=== PATIENT | female | born 1960 | race African-American/Black ===

== ENCOUNTER 2018-07-07 08:10 | Emergency (ER) | payer BC, OTHER ==
--- NOTE | 2018-07-07 08:36 | EKG ---
Test Date: 2018-07-07 Test Time: 08:21:42 [employer] Sales Executive: RICHAR MEASUREMENT RESULTS: Intervals: Rate: 64 CO: 148 QRSD: 90 QT: 386 QTc: 398 [place]: P: 2 CO: 148 QRS: -11 T: -29 INTERPRETIVE STATEMENTS: Normal sinus rhythm Nonspecific T wave abnormality Abnormal ECG Compared to ECG 07/19/1991 00:02:00 No significant changes Electronically Signed On 07-07-18 08:36:18 CDT by Zac Ackerman
[2018-07-07 08:58] LABS: Protime INR 0.96
[2018-07-07 09:01] LABS: Absolute Monocytes 0.2 K/uL (0.1-1.3); Absolute Neutrophil 1.7 K/uL (1.8-8.0); Basophils % 0.4 % (0-1.3); Eosinophils % 3.2 % (0-4.4); Lymphocytes % 48.6 % (15.3-44.8); Monocytes % 6.1 % (3.3-12.3); RBC Red Blood Cell Count 4.19 M/uL (3.86-4.86)
[2018-07-07 09:15] LABS: ALT/SGPT 28 U/L (12-78); AST/SGOT 25 U/L (15-37); Albumin 4.2 g/dL (3.4-5.0); Alkaline Phosphatase 82 U/L (45-117); BUN Blood Urea Nitrogen 14 mg/dL (7-18); Bicarbonate 30 mmol/L (21-32); Bilirubin Direct 0.2 mg/dL (0-0.2); Bilirubin Total 0.6 mg/dL (0.2-1.0); Glucose Level 104 mg/dL (74-106); Magnesium 2.4 mg/dL (1.8-2.4); NT PRO-BNP 33 pg/mL (<125); Potassium 4.3 mmol/L (3.5-5.1); Protein, Total 7.9 g/dL (6.4-8.2); Sodium Level 143 mmol/L (136-145); Troponin (Emerg Dept Use Only) < 0.02 ng/mL (0.0-0.045)
[2018-07-07 09:30] LABS: Blood Morphology Comment NOT SEEN (NOT SEEN); Platelet Estimate ADEQ
--- NOTE | 2018-07-07 09:44 | RAD REPORT ---
EXAM DESCRIPTION: [place] Single View07/07/2018 8:57 am CLINICAL HISTORY: Chest pain COMPARISON: none FINDINGS: The lungs appear clear of acute infiltrate. The heart is normal size IMPRESSION: No acute abnormalities displayed
--- NOTE | 2018-07-07 10:24 | RAD REPORT ---
EXAM DESCRIPTION: CT - Chest Angio - 07/07/2018 9:52 am CLINICAL HISTORY: . Chest pain COMPARISON: none TECHNIQUE: Computed tomography angiography of the chest obtained. 100 cc Isovue 370 was administered intravenously. 3D MIPS reconstruction performed All CT scans are performed using dose optimization technique as appropriate and may include automated exposure control or mA/KV adjustment according to patient size. FINDINGS: A thoracic aortic dissection is not seen. An aortic aneurysm is not displayed. The celiac, and SMA are patent A central pulmonary embolus is not seen A lung consolidation is not present. A pericardial effusion is not seen. A pleural effusion is not n oted. Fatty liver 5.1 centimeter fatty mass lies within the posterior musculature of the scapula. IMPRESSION: Negative for an aortic dissection. 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 It does contain a few septations along the superior aspect. A well differentiated liposar coma is considerably less likely. It is recommended that the patient have a followup ultrasound in 6 months to assess stability
--- NOTE | 2018-07-07 11:31 | ER ---
Nurse's Notes [facility] Name: Macy Brown Age: 57 yrs Sex: Female : 1960 Arrival Date: 07/07/2018 Time: 08:12 Bed 2 Private MD: Danica Fernandez Diagnosis: Chest pain, unspecified Presentation: 07/07 08:29 Presenting complaint: Patient states: Sudden onset of R sided CP that radiated towards ss upper back 6 days ago that lasted momentarily, but patient states that since then she has had a dull "nagging" pain to same area. Denies SOB, cough and/or fever. Transition of care: patient was not received from another setting of care. Onset of symptoms was June 30, 2018. Risk Assessment: Do you want to hurt yourself or someone else? Patient reports no desire to harm self or others. Initial Sepsis Screen: Does the patient meet any 2 criteria? No. Patient's initial sepsis screen is negative. Does the patient have a suspected source of infection? No. Patient's initial sepsis screen is negative. Care prior to arrival: None. 08:29 Method Of Arrival: Ambulatory ss 08:29 Acuity: PATRICIA 3 ss Historical: - Allergies: 08:31 No Known Allergies; ss - Home Meds: 08:31 blood presure medication [Active]; aspirin 81 mg Oral TbEC 1 tab once daily [Active]; ss - PMHx: 08:31 Hypertension; ss - PSHx: 08:31 ; ss - Immunization history:: Adult Immunizations. - Social history:: Smoking status: Patient/guardian denies using tobacco. - Ebola Screening: : Patient denies exposure to infectious person Patient denies travel to an Ebola-affected area in the 21 days before illness onset. Screenin:44 Abuse screen: Denies threats or abuse. Denies injuries from another. Nutritional ss screening: No deficits noted. Tuberculosis screening: No symptoms or risk factors identified. Never had TB. Fall Risk None identified. Assessment: 08:25 General: Appears in no apparent distress. comfortable, Behavior is calm, cooperative, ss Denies fever, feeling ill, fatigue, chills. Pain: Complains of pain in anterior aspect of right upper chest Pain radiates to right scapular area Pain currently is 5 out of 10 on a pain scale. at worst was 9 out of 10 on a pain scale. Quality of pain is described as dull "nagging" Pain began 6 days ago. Neuro: Level of Consciousness is awake, alert, obeys commands, Oriented to person, place, time, situation. Cardiovascular: Capillary refill < 3 seconds is brisk in bilateral fingers Rhythm is regular. Cardiovascular: Reports chest pain, Denies lightheadedness, palpitations, shortness of breath, Heart tones S1 S2 present Pulses are palpable in right radial artery and left radial artery. Respiratory: Airway is patent Respiratory effort is even, unlabored, Respiratory pattern is regular, symmetrical. Respiratory: Breath sounds are clear bilaterally. Denies cough, shortness of breath pain with respiration, pain with cough, pain with movement. GI: Patient currently denies abdominal pain, diarrhea, nausea, vomiting. : No signs and/or symptoms were reported regarding the genitourinary system. EENT: Nares are clear Oral mucosa is moist. Throat is clear. Derm: Skin is intact, is healthy with good turgor, Skin is pink, warm \\T\\ dry. normal. Musculoskeletal: Circulation, motion, and sensation intact. Capillary refill < 3 seconds, is brisk, Range of motion: intact in all extremities, Swelling absent. 08:50 General: Appears in no apparent distress. comfortable, Behavior is calm, cooperative, sv appropriate for age. Pain: Complains of pain in anterior aspect of left upper chest and left breast Pain currently is 6 out of 10 on a pain scale. Neuro: Level of Consciousness is awake, alert, obeys commands, Oriented to person, place, time, situation, Moves all extremities. Full function Gait is steady. Respiratory: Airway is patent Respiratory effort is even, unlabored, Respiratory pattern is regular, symmetrical. Derm: Skin is intact, Skin is pink, warm \\T\\ dry. 12:12 Reassessment: Patient appears in no apparent distress at this time. No changes from sv previously documented assessment. Patient and/or family updated on plan of care and expected duration. Pain level reassessed. Patient is alert, oriented x 3, equal unlabored respirations, skin warm/dry/pink. Vital Signs: 08:31 BP 141 / 97; Pulse 75; Resp 15; Temp 97.6(O); Pulse Ox 99% on R/A; Weight 83.91 kg; ss Height 5 ft. 6 in. (167.64 cm); 09:38 BP 129 / 80; Pulse 60; Resp 19; Pulse Ox 99% ; sv 08:31 Body Mass Index 29.86 (83.91 kg, 167.64 cm) ED Course: 08:12 Patient arrived in ED. as 08:12 Danica Fernandez MD is Private Physician. as 08:24 Nguyễn Nielson MD is Attending Physician. kdr 08:25 Patient maintains SpO2 saturation greater than 95% on room air. ss 08:25 Patient has correct armband on for positive identification. child monitor on. Pulse ss ox on. NIBP on. Warm blanket given. 08:26 EKG done, by splicing technician. reviewed by Nguyễn Nielson MD. at1 08:30 Triage completed. ss 08:31 Arm band placed on right wrist. ss 08:41 Initial lab(s) drawn, by nd, sent to lab. Inserted saline lock: 20 gauge in right em1 antecubital area, using aseptic technique. Blood collected. 08:57 XRAY Chest (1 view) In Process Unspecified. EDMS 09:10 Chelsey Crouch, RN is Primary Nurse. sv 09:53 CT Chest Angio In Process Unspecified. EDMS 11:29 Danica Fernandez MD is Referral Physician. kdr 12:16 No provider procedures requiring assistance completed. IV discontinued, intact, sv bleeding controlled, No redness/swelling at site. Pressure dressing applied. Administered Medications: No medications were administered Outcome: 11:30 Discharge ordered by . kdr 12:16 Discharged to home ambulatory, with family. sv 12:16 Condition: stable 12:16 Discharge instructions given to patient, Instructed on discharge instructions, follow up and referral plans. medication usage, Demonstrated understanding of instructions, follow-up care, medications, Prescriptions given X 2. 12:17 Patient left the ED. sv Signatures: Dispatcher [employer] EDMS Chelsey Crouch, RN EFREN Nguyễn Nielson MD MD kdr Martinez, Amelia as Martinez, Eric em1 Lynne Valladares RN RN Freida Hill, botany technician EKG Tat1
--- NOTE | 2018-07-07 11:31 | EDPHYS ---
Physician Documentation [facility] Name: Macy Brown Age: 57 yrs Sex: Female : 1960 Arrival Date: 07/07/2018 Time: 08:12 Bed 2 Private MD: Danica Fernandez ED Physician Nguyễn Nielson HPI: 07/07 09:29 This 57 yrs old Female presents to ER via Ambulatory with complaints of Chest kdr Pain. 09:29 The patient or guardian reports chest pain that is located primarily in the Initially kdr the pain that occurred was on the right chest that was sharp and radiated into her back. Since then, she has had a dull persistent aching chest discomfort on the left side. She has had intermittent nausea, SOB and diaphoresis which have been brief and not obviously associated with her discomfort.. Onset: suddenly, 10 day(s) ago. The pain radiates to the right scapula. Associated signs and symptoms: Pertinent positives: nausea. The chest pain is described as aching, dull, a heaviness, a pressure. Duration: The patient or guardian reports multiple episodes, that are intermittent, that wax and wane, with no pattern. Modifying factors: The symptoms are alleviated by nothing. the symptoms are aggravated by nothing. Severity of pain: At its worst the pain was mild in the emergency department the pain is unchanged. The patient has not experienced similar symptoms in the past. 09:29 The patient has not recently seen a physician. kdr Historical: - Allergies: 08:31 No Known Allergies; ss - Home Meds: 08:31 blood presure medication [Active]; aspirin 81 mg Oral TbEC 1 tab once daily [Active]; ss - PMHx: 08:31 Hypertension; ss - PSHx: 08:31 ; ss - Immunization history:: Adult Immunizations. - Social history:: Smoking status: Patient/guardian denies using tobacco. - Ebola Screening: : Patient denies exposure to infectious person Patient denies travel to an Ebola-affected area in the 21 days before illness onset. ROS: 09:29 Constitutional: Negative for fever, chills, and weight loss, Eyes: Negative for injury, kdr pain, redness, and discharge, ENT: Negative for injury, pain, and discharge, Neck: Negative for injury, pain, and swelling, Respiratory: Negative for shortness of breath, cough, wheezing, and pleuritic chest pain, Abdomen/GI: Negative for abdominal pain, nausea, vomiting, diarrhea, and constipation, Back: Negative for injury and pain, : Negative for injury, bleeding, discharge, and swelling, MS/Extremity: Negative for injury and deformity, Skin: Negative for injury, rash, and discoloration, Neuro: Negative for headache, weakness, numbness, tingling, and seizure activity. Psych: Negative for depression, anxiety, suicide ideation, homicidal ideation, and hallucinations, Allergy/Immunology: Negative for hives, rash, and allergies, Endocrine: Negative for neck swelling, polydipsia, polyuria, polyphagia, and marked weight changes, Hematologic/Lymphatic: Negative for swollen nodes, abnormal bleeding, and unusual bruising. 09:29 Cardiovascular: Positive for chest pain, Negative for edema, orthopnea, palpitations, paroxysmal nocturnal dyspnea. Exam: 08:30 ECG was reviewed by the Attending Physician. kdr 09:29 Constitutional: This is a well developed, well nourished patient who is awake, alert, kdr and in no acute distress. Head/Face: Normocephalic, atraumatic. Eyes: Pupils equal round and reactive to light, extra-ocular motions intact. Lids and lashes normal. Conjunctiva and sclera are non-icteric and not injected. Cornea within normal limits. Periorbital areas with no swelling, redness, or edema. Neck: Trachea midline, no thyromegaly or masses palpated, and no cervical lymphadenopathy. Supple, full range of motion without nuchal rigidity, or vertebral point tenderness. No Meningismus. Chest/axilla: Normal chest wall appearance and motion. Nontender with no deformity. No lesions are appreciated. Cardiovascular: Regular rate and rhythm with a normal S1 and S2. No gallops, murmurs, or rubs. Normal PMI, no JVD. No pulse deficits. Respiratory: Lungs have equal breath sounds bilaterally, clear to auscultation and percussion. No rales, rhonchi or wheezes noted. No increased work of breathing, no retractions or nasal flaring. Abdomen/GI: Soft, non-tender, with normal bowel sounds. No distension or tympany. No guarding or rebound. No evidence of tenderness throughout. Back: No spinal tenderness. No costovertebral tenderness. Full range of motion. Skin: Warm, dry with normal turgor. Normal color with no rashes, no lesions, and no evidence of cellulitis. MS/ Extremity: Pulses equal, no cyanosis. Neurovascular intact. Full, normal range of motion. Neuro: Awake and alert, GCS 15, oriented to person, place, time, and situation. Cranial nerves II-XII grossly intact. Motor strength 5/5 in all extremities. Sensory grossly intact. Cerebellar exam normal. Normal gait. Psych: Awake, alert, with orientation to person, place and time. Behavior, mood, and affect are within normal limits. Vital Signs: 08:31 BP 141 / 97; Pulse 75; Resp 15; Temp 97.6(O); Pulse Ox 99% on R/A; Weight 83.91 kg; ss Height 5 ft. 6 in. (167.64 cm); 09:38 BP 129 / 80; Pulse 60; Resp 19; Pulse Ox 99% ; sv 08:31 Body Mass Index 29.86 (83.91 kg, 167.64 cm) ss MDM: 09:29 Data reviewed: vital signs, nurses notes. kdr 11:28 HEART Score: History: Moderately Suspicious (1), ECG: Normal (0), Age: > 45 and < 65 kdr years (1), Risk Factors: 1 or 2 risk factors (1), Troponin: < or = 1 x Normal Limit (0), Total Score =. ALANA Risk Score: 1 - Recent [<24hrs] Severe Angina, TOTAL SCORE = 1. 11:30 Patient medically screened. [facility] 07/07 08:25 Order name: Basic Metabolic Panel; Complete Time: 09:50 [facility] 07/07 08:25 Order name: CBC with Diff; Complete Time: :50 [facility] 07/07 08:25 Order name: LFT's; Complete Time: :50 [facility] 07/07 08:25 Order name: Magnesium; Complete Time: :50 [facility] 07/07 08:25 Order name: NT PRO-BNP; Complete Time: :50 [facility] 07/07 08:25 Order name: PT-INR; Complete Time: 09:50 [facility] 07/07 08:25 Order name: Troponin (emerg Dept Use Only); Complete Time: 09:50 [facility] 07/07 08:25 Order name: XRAY Chest (1 view); Complete Time: :50 kdr 07/07 08:25 Order name: EKG; Complete Time: 08:26 kdr 07/07 08:25 Order name: Cardiac monitoring; Complete Time: 09:10 kdr 07/07 08:53 Order name: CT Chest Angio; Complete Time: 10:47 kdr 07/07 09:31 Order name: Manual Differential; Complete Time: 09:50 EDMS 07/07 10:19 Order name: Troponin (emerg Dept Use Only): Draw 2 hours after initial draw; Complete kdr Time: 11:28 07/07 10:58 Order name: Urine Dipstick--Ancillary (enter results) eb 07/07 08:25 Order name: EKG - Nurse/Tech; Complete Time: 08:40 kdr 07/07 08:25 Order name: IV Saline Lock; Complete Time: 08:40 kdr 07/07 08:25 Order name: Labs collected and sent; Complete Time: 08:40 kdr 07/07 08:25 Order name: O2 Per Protocol; Complete Time: 08:53 kdr 07/07 08:25 Order name: O2 Sat Monitoring; Complete Time: 08:53 kdr EC:30 Rate is 64 beats/min. Rhythm is regular, Normal Sinus Rhythm with No ectopy. AK kdr interval is normal. QRS interval is normal. QT interval is normal. No Q waves. T waves are Inverted. T waves are Flattened. Clinical impression: NSR w/ Non-specific ST/T Changes. Administered Medications: No medications were administered Disposition: 07/07/18 11:30 Discharged to Home. Impression: Chest pain, unspecified. - Condition is Stable. - Discharge Instructions: Chest Wall Pain, [id number], Nonspecific Chest Pain, [id number]. - Prescriptions for Ibuprofen 600 mg Oral Tablet - take 1 tablet by ORAL route every 6 hours As needed take with food; 30 tablet. Tramadol 50 mg Oral Tablet - take 1 tablet by ORAL route every 8 hours as needed; 12 tablet. - Medication Reconciliation Form, Thank You Letter form. - Follow up: Danica Fernandez MD; When: 2 - 3 days; Reason: If symptoms return, Further diagnostic work-up, Recheck today's complaints, Continuance of care, Re-evaluation by your physician. - Problem is new. - Symptoms have improved. Signatures: Dispatcher [employer] Chelsey Lopez, RN RN sv Nguyễn Nielson MD MD [facility] Lynne aVlladares, EFREN RN ss Corrections: (The following items were deleted from the chart) 12:17 11:30 07/07/2018 11:30 Discharged to Home. Impression: Chest pain, unspecified. sv Condition is Stable. Forms are Medication Reconciliation Form, Thank You Letter, Antibiotic Education, Prescription Opioid Use. Follow up: Danica Fernandez; When: 2 - 3 days; Reason: If symptoms return, Further diagnostic work-up, Recheck today's complaints, Continuance of care, Re-evaluation by your physician. Problem is new. Symptoms have improved. kdr
[2018-07-07 12:16] LABS: Urine Blood TRACE (NEG); Urine Glucose NEGATIVE (NEG); Urine Protein NEGATIVE (NEG); Urine pH 7.5 (5.0-7.0)
[2018-07-07 12:27] VITALS: TEMP 97.6; O2SAT 99
[2018-07-07 12:28] VITALS: BP 129/80
== END 2018-07-07 12:17 | disposition home or self-care (01) ==
LOC: ER 08:10
DX: R07.9 Chest pain, unspecified (principal); I10 Essential (primary) hypertension; Z79.82 Long term (current) use of aspirin
CPT/HCPCS: 36415; 71045; 71275; 80048; 80076; 81003; 83735; 83880; 84484; 85025; 85610; 93005; 99285; Q9967